=== PATIENT | female | born 1940 | race Caucasian/White ===

== ENCOUNTER → 2018-05-11 | Outpatient (CLI) | payer OTHER | END | disposition home or self-care (01) | LOC: TOM 07:33 | DX: K56.690 Other partial intestinal obstruction (principal) ==

== ENCOUNTER 2022-12-16 10:02 | Outpatient (CLI) | payer OTHER | END 2022-12-16 10:08 | disposition home or self-care (01) | LOC: TOM 10:02 | PROVIDERS: ATTEND Internal Medicine Gastroenterology | DX: R19.5 Other fecal abnormalities (principal); K56.609 Unspecified intestinal obstruction, unspecified as to partial versus complete obstruction ==